=== PATIENT | female | born 1955 | race Caucasian/White ===

== ENCOUNTER 2017-11-04 09:57 | Outpatient (CLI) | payer BC | END 2017-11-04 09:58 | disposition home or self-care (01) | LOC: BICMAMMO 09:57 | PROVIDERS: ATTEND Obstetrics & Gynecology | DX: Z12.31 Encounter for screening mammogram for malignant neoplasm of breast (principal); R10.9 Unspecified abdominal pain | CPT/HCPCS: 76705; 77063; 77067 ==

== ENCOUNTER 2017-11-11 10:16 | Outpatient (CLI) | payer BC ==
[~2017-11-11 10:16] MED LIST: Iopamidol 370 76% 100 ML VIAL ONE
--- NOTE | 2017-11-11 12:06 | CT ---
CT OF ABDOMEN AND PELVIS PERFORMED WITH AND WITHOUT CONTRAST ENHANCEMENT: History: Right sided abdomen pain and bloating. Comparison: Ultrasound 11-04-17 at [facility]. FINDINGS: Lung bases show some linear scarring in the left base. Numerous hypodensities are seen within the liver. The largest is near the junction of the right and l eft lobes and it measures 7.7 cm in size. These are compatible with cysts. The spleen is upper limits of normal in size. Pancreas and gallbladder regions appear unremarkable. Right and left adrenal glands and right and left kidneys are normal in size. No renal masses or obstr uction. No calculi. There is no significant periaortic or mesenteric lymphadenopathy. CT OF PELVIS PERFORMED WITH AND WITHOUT CONTRAST ENHANCEMENT: Sigmoid diverticulosis is noted. No evidence of adenopathy, mass, or free fluid. IMPRESSION: 1. Numerous hepatic cysts, the largest of each is near the portal region measuring 7.7 cm in size. 2. Sigmoid diverticulosis. POS: [facility]
== END 2017-11-11 10:17 | disposition home or self-care (01) ==
LOC: SCSCT 10:16
PROVIDERS: ATTEND Internal Medicine Gastroenterology
DX: R10.13 Epigastric pain (principal); R93.3 Abnormal findings on diagnostic imaging of other parts of digestive tract; R10.11 Right upper quadrant pain; R10.9 Unspecified abdominal pain; K76.89 Other specified diseases of liver; K57.30 Diverticulosis of large intestine without perforation or abscess without bleeding
CPT/HCPCS: 74178

== ENCOUNTER 2017-11-30 07:17 | Outpatient (CLI) | payer BC ==
--- NOTE | 2017-11-30 09:51 | CT ---
CHEST CT WITH CONTRAST: HISTORY: Abnormal EGD. Possible esophageal lesion. COMPARISON: None. TECHNIQUE: Postcontrast chest CT is performed in the axial plane. Coronal reformatted images are submitted for interpretation. FINDINGS: No mediastinal mass, lymphadenopathy, or hematoma. Heart size is within normal limits. No pericardi al effusion. Visualized aorta has a normal caliber. Central pulmonary arteries are adequately opaci fied with contrast. No filling defect. There are multiple hypodensities in the liver. The largest hypodense lesion has attenuation coeffici ent compatible with a simple cyst, measuring 7.3 cm. Additional smaller hypodense lesions are also c ompatible with hepatic cysts. There is contrast opacifying the thoracic esophagus. An obvious intraluminal filling defect is not a ppreciated. There is hypoattenuation of the midthoracic esophagus which may represent apposition of nondistended esophageal mucosa. The possibility of esophageal lesion cannot be excluded. This lesio n is appreciated at the level of the aortic arch on the coronal reformatted images. No masses or consolidation. No pleural effusion or pneumothorax. Trachea and central bronchi are patent. IMPRESSION: 1. Possible soft tissue densities in the midthoracic esophagus, at the level of the aortic arch. Reference to recent endoscopy is recommended. There is no evidence of mediastinal lymphadenopathy. 2. Right upper lobe pleural based nodule. Six month follow up. POS: [facility]
[2017-11-30] MEDS ORDERED: Iopamidol 370 76% 100 ML VIAL ONE (16:01)
== END 2017-11-30 07:18 | disposition home or self-care (01) ==
LOC: CT 07:17
PROVIDERS: ATTEND Internal Medicine Gastroenterology
DX: K22.8 Other specified diseases of esophagus (principal); R91.1 Solitary pulmonary nodule
CPT/HCPCS: 71260; 82565

== ENCOUNTER 2018-11-18 10:47 | Outpatient (CLI) | payer BC | END 2018-11-18 10:48 | disposition home or self-care (01) | LOC: BICMAMMO 10:47 | PROVIDERS: ATTEND Obstetrics & Gynecology | DX: Z12.31 Encounter for screening mammogram for malignant neoplasm of breast (principal); Z80.3 Family history of malignant neoplasm of breast | CPT/HCPCS: 77063; 77067 ==

== ENCOUNTER 2019-02-09 09:21 | Outpatient (CLI) | payer BC ==
--- NOTE | 2019-02-09 10:44 | CT ---
CT CHEST WITH IV CONTRAST CLINICAL INDICATION: Right-sided chest pain. Follow-up pulmonary nodule right upper lobe. COMPARISON: 11/30/2017 FINDINGS: Aorta: The aorta is normal in caliber without evidence of an aortic dissection. Lungs: Smoothly marginated pleural-based nodule measuring 11 mm x 3 mm at the lateral aspect right up per lung zone is again seen. Due to small size of this nodule, this is difficult to accurately characterize. However, there is suggestion of fat density within this nodular density, and this is li juwan related to a benign finding. No additional pulmonary nodule, mass, or pleural effusion is seen in the lungs bilaterally. Calcified granuloma is again present in the left upper lobe. Mediastinum: A small hiatal hernia is present. There was mention of possible soft tissue densities in the mid thoracic esophagus on the prior exam, but this is unable to be evaluated on this exam. Thyroid gland: Small subcentimeter hypodense nodules are seen in each lobe of the thyroid gland. Osseous structures: Mild degenerative changes are seen in the spine. Chest wall: No abnormality visualized. Upper abdomen: Previously noted hypodense lesions within the liver are again seen which again demonst rated attenuation coefficients compatible with cysts. Largest cyst measures 8.1 cm and is stable compared to CT abdomen on 11/11/2017. IMPRESSION: 1. Stable smoothly marginated pleural-based nodular density lateral right upper lung zone. There is q uestion of fat density within this pleural-based nodule suggesting a benign finding. However, due to the very small size, this is difficult to definitively characterize. This is unchanged in size or appearance compared to prior study. Follow up examination in one year is recommended. 2. Small hypodense nodules in each lobe the thyroid gland. Nonemergent thyroid ultrasound is recommen ded. 3. Small hiatal hernia. 4. Hepatic cysts.
== END 2019-02-09 09:22 | disposition home or self-care (01) ==
LOC: CT 09:21
PROVIDERS: ATTEND Internal Medicine
DX: R07.9 Chest pain, unspecified (principal); J98.4 Other disorders of lung; E04.2 Nontoxic multinodular goiter; K44.9 Diaphragmatic hernia without obstruction or gangrene; K76.89 Other specified diseases of liver
CPT/HCPCS: 71260; 82565

== ENCOUNTER 2019-02-28 10:55 | Outpatient (CLI) | payer BC ==
--- NOTE | 2019-02-28 11:42 | RAD ---
CERVICAL SPINE 6 VIEWS: Date: 02/28/19 HISTORY: Cervicalgia, old injury. Numbness and tingling to both hands. FINDINGS: Multilevel disc osteophyte changes are noted of the cervical spine. No prevertebral soft tissue swell ing. Generalized facet arthrosis. No significant abnormal translation between flexion and extension. C7 and T1 regions are partially obscured on the lateral view and the tip of the odontoid and C1 are o bscured on the AP open-mouth views. IMPRESSION: Cervical spondylosis. Given potential radiculopathy, consider follow-up MRI study. POS: [facility]
--- NOTE | 2019-02-28 11:43 | RAD ---
LUMBAR SPINE 2 VIEWS: Date: 02/28/19 HISTORY: Dorsalgia, no recent injury. FINDINGS: Multilevel disc osteophytosis, particularly at L3-L4. Generalized facet arthrosis. No acute fracture or dislocation. Mild scoliotic changes. IMPRESSION: Lumbar spondylosis with disc osteophytosis and facet arthrosis. No acute fracture or dislocation. No other significant acute process. POS: [facility]
== END 2019-02-28 10:56 | disposition home or self-care (01) ==
LOC: BICRAD 10:55
PROVIDERS: ATTEND Internal Medicine Rheumatology
DX: M54.2 Cervicalgia (principal); M54.89 Other dorsalgia; M47.816 Spondylosis without myelopathy or radiculopathy, lumbar region; M46.96 Unspecified inflammatory spondylopathy, lumbar region; M25.78 Osteophyte, vertebrae; M47.812 Spondylosis without myelopathy or radiculopathy, cervical region
CPT/HCPCS: 72050; 72100

== ENCOUNTER 2019-12-15 10:04 | Outpatient (CLI) | payer BC ==
--- NOTE | 2019-12-15 10:59 | MMO ---
Bilateral MAMMO Bilat Diag [facility]. CLINICAL HISTORY: Patient is 64 years old and is seen for diagnostic exam and palpable abnormality in the right breast at 11 o'clock. The patient has the following family history of breast cancer: cousin female. The patient has no personal history of cancer. The patient has a history of right Lumpectomy in 1992 - benign. VIEWS: The views performed were: bilateral craniocaudal with tomosynthesis; bilateral mediolateral oblique with tomosynthesis; and bilateral mediolateral with tomosynthesis. FILMS COMPARED: The present examination [facility], and at [facility] on 11/04/2017, 11/18/2018 and 12/15/2019. This study has been interpreted with the assistance of computer-aided detection. MAMMOGRAM FINDINGS: There are scattered fibroglandular densities. There is a benign appearing calcification in the right breast. No mass is seen at sites of palpable concern on mammo or US in the right breast. There are no suspicious masses, suspicious calcifications, or new areas of architectural distortion. IMPRESSION: THERE IS NO MAMMOGRAPHIC EVIDENCE OF MALIGNANCY. A ROUTINE FOLLOW-UP MAMMOGRAM IN 1 YEAR IS RECOMMENDED. THE RESULTS OF THIS EXAM WERE SENT TO THE PATIENT. ACR BI-RADS Category 2 - Benign finding MAMMOGRAPHY NOTE: 1. A negative mammogram report should not delay a biopsy if a dominant of clinically suspicious mass is present. 2. Approximately 10% to 15% of breast cancers are not detected by mammography. 3. Adenosis and dense breasts may obscure an underlying neoplasm. Reported by: TIN ALLEN MD Electonically Signed: [id number]
--- NOTE | 2019-12-15 11:35 | ULT ---
RIGHT BREAST ULTRASOUND: HISTORY: Palpable abnormalities. FINDINGS: Correlation is made with mammogram of same date. Sonographic evaluation of the region of palpable concern at the 12 and 1 o'clock positions of the rig ht breast demonstrate no abnormality. IMPRESSION: BIRADS category 2 - benign findings. Return to annual mammographic screening.
== END 2019-12-15 10:05 | disposition home or self-care (01) ==
LOC: BICMAMMO 10:04
PROVIDERS: ATTEND Obstetrics & Gynecology
DX: N63.10 Unspecified lump in the right breast, unspecified quadrant (principal)
CPT/HCPCS: 77066; G0279

== ENCOUNTER 2021-02-08 09:51 | Outpatient (CLI) | payer BC | END 2021-02-08 09:52 | disposition home or self-care (01) | LOC: BICMAMMO 09:51 | PROVIDERS: ATTEND Obstetrics & Gynecology | DX: Z12.31 Encounter for screening mammogram for malignant neoplasm of breast (principal); Z91.89 Other specified personal risk factors, not elsewhere classified; Z80.3 Family history of malignant neoplasm of breast | CPT/HCPCS: 77063; 77067 ==